=== PATIENT | male | born 1935 | race Caucasian/White ===

== ENCOUNTER → 2016-12-02 | Outpatient (CLI) | payer MEDICARE ==
[2016-03-03 15:30] VITALS: BP 123/77
[~2016-12-02] VITALS: Ht 172.7 cm; Wt 79.4 kg
[~2016-12-02] MED LIST: ALBU8.5H6 INH; ASPI81TA11 PO; ASPI81TA2 PO; CALC625T12 PO; CIPR500T94 PO; ENOX40DI SQ; ENOX40DI3 SQ; ENOX80DI3 SQ; ENOXAPARIN SODIUM SQ; FERR-26 PO; FORM20VI IH; GUAR1TAB6 PO; METR250T PO; OMEG-33 PO; OMEG500C PO; OMEP20TA63 PO; ONDA4TAB12 PO; OXYC-323 PO; OXYC1TAB7 PO; PROVENTIL HFA6.7 GM IH; REGADENOSON 0.4 MG/5 ML DISP.SYRIN. IV ONE; WARF2TAB PO; WARF3TAB7 PO; WARF4TAB7 PO; WARF5TAB7 PO
--- NOTE | 2016-12-02 14:14 | RAD ---
APPROVED REPORT Test Type: Pharmacological Stress Nurse/Tech: Gloria Mckenzie R.N. Test Indications: abnormal echo Cardiac History: copd, PE, dvt, ivc filter Medications: see scan sheet Medical History: see scan sheet Resting ECG: SR with pac Resting Heart Rate: 67 bpm Resting Blood Pressure: 164/91mmHg Pretest Chest Pain: No chest pain Nurse/Tech Notes lungs cta, heart tones regular, good radial pulse Consent: The procedure was explained to the patient in lay terms. Informed consent was witnessed. Deonte eout was entered into [employer]. History and Stress Test performed by Gloria Mckenzie R.N. Pharm. Details Pharmacologic stress testing was performed using 0.4mg per 5ml of regadenoson given intravenously ove r 7-10 seconds. Stress Symptoms No chest pain or symptoms. POST EXERCISE Reason for Termination: Infusion complete Target HR: No Max HR: 99 bpm Max Blood Pressure: 170/85mmHg Chest Pain: No. Arrhythmia: Yes. PACs continued throughout ST Change: No. INTERPRETATION Stress EKG Conclusion: Baseline EKG showed sinus rhythm. No ischemic changes at peak stress. No arr hythmias. Imaging Protocol IMAGE PROTOCOL: Rest Tc-99m/stress Tc-99m 1 day Rest: Stress: Viability: Radiopharm.Tc99m [id number] Sestamibi Dose11.9mCi 37.1mCi Img Date 12/02/2016 12/02/2016 Inj-Img [id number]. 60min. Rest Admin Site:IV - Right AntecubitalAdministrator:SAMANTHA Beavers Stress Admin Site: IV - Right AntecubitalAdministrator: SAMANTHA Beavers STRESS DATA End Diast. Vol.78.0mlAv. Heart Rate87.0bpm End Syst. Vol.28.0mlCO Index BSA0.0L/min Myocardial Ioif742.0gEject. Jqhbzeiy50.0% Stress Rates Pk. Fill Rate3.85EDV/secLVtime Pk. Fill 183.95msec Pk. Empty Rate4.73ESV/secLVtime Pk. Cmmxv057.40msec 12/01 Pk. Fill1.17EDV/sec Stress Scores Regional WT0.00Summed WT4.00 Regional WM0.00Summed WM5.00 Study quality was good. Left Ventricular size was Normal at Rest and Stress. Lung uptake was Normal. Left Ventricular ejection fraction is 64%. The rest and stress images show normal perfusion, normal contraction and thickening. LV Perf. Quant 17 Seg. SSS3.00 17 Seg. SRS5.00 17 Seg. SDS0.00 Stress Defect Extent (% LAD)0.00Rest Defect Extent (% LAD)0.60Rev. Defect Extent (% LAD)0.00 Stress Defect Extent (% LCX) 18.80Rest Defect Extent (% LCX)33.80Rev. Defect Extent (% LCX)0.00 Stress Defect Extent (% RCA)0.00Rest Defect Extent (% RCA)0.00Rev. Defect Extent (% RCA)0.00 Stress Defect Extent (% HERMELINDA)4.60Rest Defect Extent (% HERMELINDA)11.10Rev. Defect Extent (% HERMELINDA)0.00 Conclusion 1. Regadenoson cardioisotope stress test did not show any evidence of ischemia or infarct. 2. Normal left ventricular systolic function with ejection fraction calculated at 64%. 3. Low risk for cardiac events.
== END | disposition home or self-care (01) ==
LOC: NM 07:22
PROVIDERS: ATTEND Internal Medicine Cardiovascular Disease
DX: I42.9 Cardiomyopathy, unspecified (principal)
CPT/HCPCS: 78452; 93017; 96374; A9500; J2785; 96376

== ENCOUNTER → 2017-10-13 | Outpatient (CLI) | payer MEDICARE, BC ==
[2016-03-03 15:30] VITALS: BP 123/77
[~2017-10-13] MED LIST changes: +ASPI-630 PO; -ASPI81TA2 PO; +BUPIVACAINE MPF 0.5% 10 ML VIAL for KCIC. IJ ONE; +IOHEXOL 300 MG/ML 50 ML VIAL. INT ART ONE; +LIDOCAINE 1% Multi-Dose 20 ML VIAL. ID ONE; -REGADENOSON 0.4 MG/5 ML DISP.SYRIN. IV ONE; +methylPREDNISolone ACETATE 40 MG/ML VIAL. INT ART ONE
--- NOTE | 2017-10-13 11:13 | KCIC ---
[Left] hip injection History: [Left] hip pain Findings: Patient was informed of the risks to include pain, infection, bleeding, nerve or blood vessel injury, and allergic reaction. All questions were answered. The patient signed a written consent form for a [left] hip injection. Patient was placed in a supine position. External skin site overlying the [left] hip was prepped and draped in the usual sterile fashion. Betadine was utilized for cleansing solution. 1% lidocaine was utilized for local anesthesia to the depth of the [left] femoral neck. 22-gauge spinal needle was advanced to the margin of the [left] femoral neck. Solution containing 2 mL Depo-Medrol, 4 cc lidocaine, 4 cc Omnipaque 300, and 4 cc Marcaine were injected. Injection demonstrated intra-articular position of the needle tip. Needle was removed. There were no immediate complications. Bandage was applied at site of puncture. Fluoroscopy time: [48] seconds, [1] fluoroscopic image. Impression: 1. Technically successful left hip injection without immediate complication as stated. Electronically signed by: Willard Pardo MD (10/13/2017 11:09 AM) [facility]
== END | disposition home or self-care (01) ==
LOC: KCIC 10:08
PROVIDERS: ATTEND Orthopaedic Surgery Sports Medicine
DX: M25.552 Pain in left hip (principal); G89.29 Other chronic pain
CPT/HCPCS: 20610; 77002; J1030; Q9967

== ENCOUNTER → 2017-11-17 | Outpatient (CLI) | payer MEDICARE, BC ==
[2016-03-03 15:30] VITALS: BP 123/77
[~2017-11-17] MED LIST changes: -BUPIVACAINE MPF 0.5% 10 ML VIAL for KCIC. IJ ONE; +CHOL10003 PO; -IOHEXOL 300 MG/ML 50 ML VIAL. INT ART ONE; -LIDOCAINE 1% Multi-Dose 20 ML VIAL. ID ONE; +PRAV20TA2 PO; +PRED-220 PO; +RIVA20TA2 PO; +TIOT18CA IH; -methylPREDNISolone ACETATE 40 MG/ML VIAL. INT ART ONE
--- NOTE | 2017-11-17 16:39 | PAIN ---
DATE OF SERVICE: 11/17/2017 CHIEF COMPLAINT: Left hip and lower extremity pain. HISTORY OF PRESENT ILLNESS: This is an 82-year-old male who presents with history of pain in left hip for about 1 year. No specific injury or action he is aware of. It has gradually been increasing over time, worse with walking, standing, climbing stairs, especially stepping upon steps with all his weight on his left leg and hip. Pain in the posterior gluteus, posterior thigh, lateral thigh, anterior groin in the left side, constant, stabbing, throbbing, changes during the day with activity, better with sitting down or lying down. The patient reports it wakes him from sleep about once or twice a night if he is lying on his left side. No significant pain on the right side. The patient reports no difficulty with bowel or bladder control, but it does significantly affect his ability to walk though he is not using any assistive devices, canes or walkers at this time. The patient has tried Tylenol, which helps. Also a cortisone injection he had at his Orthopedics office in September of this year, which was helpful for about a month. The patient reports after that time, the pain returned. He is trying to avoid any surgical interventions if possible for his left hip. The patient reports no loss of motor function. Reports his disability rating is from 0-10, 10 being the worst, is a 6 with family and home responsibilities, recreation; 5 with social activity, occupation; 0 with sexual behavior, 2 with self-care and 3 with life support activities. 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 PAST MEDICAL HISTORY: Significant for hearing loss, bilateral hearing aids, pulmonary fibrosis and pneumonias, asthma as a child, pulmonary embolus 2000 and 2013, clot in his left groin as well, vena cava filter placement, history of arthritis, subdural hematoma in 2012. PREVIOUS SURGERIES: Include a left knee patellar resection, left elbow surgery, left shoulder surgery, rotator cuff repair, right shoulder rotator cuff repair, shoulder replacement on the left in 2014, left knee replaced in 2013, appendectomy in 2002, bunionectomy on the right in 2012, subdural hematoma in 2012, cataract extraction 2013, left knee scope 2016 and right shoulder replacement in 2017. CURRENT MEDICATIONS: Medicines are complete, full and well documented on the patient's chart. ALLERGIES: The patient has no known drug allergies. FAMILY HISTORY: Significant for pulmonary fibrosis as well. SOCIAL HISTORY: The patient does not smoke, drinks alcohol once or twice a month, is , lives with his spouse and lives locally in [place], [place] and is currently retired. REVIEW OF SYSTEMS: Positive for those items mentioned in history of present illness. All systems reviewed and otherwise is negative. It is full, complete and well documented on the patient's chart. PHYSICAL EXAMINATION: VITAL SIGNS: Today, the patient's blood pressure 162/88, pulse 85, respirations 16, temperature 97.8 degrees Fahrenheit. Height is 5 feet 8 inches, weight is 182 pounds. GENERAL: The patient is awake, alert, oriented, appropriate, very pleasant demeanor. HEENT: Head shows normocephalic, atraumatic. Extraocular muscles are intact and symmetrical. Oral cavity, mucous membranes are moist and pink. Dentition is intact. NECK: Shows anterior throat supple without palpable lymphadenopathy noted. Swallow reflex is symmetrical. CHEST: Shows normal on inspection. Breath sounds clear to auscultation bilaterally. HEART: Shows S1, S2 clear. No murmurs auscultated. ABDOMEN: Soft, obese, nontender, nondistended. No palpable organomegaly is noted. No rebound or guarding demonstrated. BACK: Shows spine grossly in the midline. Normal appearing thoracic kyphosis and lumbar lordotic curvatures. The patient's lumbar spine shows good rotational motion both laterally greater than 10 degrees right and left as well as extension greater than 10 degrees, forward flexion 45 degrees without difficulty. No tenderness with palpation over the paraspinous musculature bilaterally in the lumbar distribution upper, middle and lower and lower extremities show deep tendon reflexes 1+ in the patellar and tendo calcaneus tendons. Motor exam is strong with 5/5 dorsiflexion, extension, quadriceps and hamstring flexion and equal. Peripheral pulses are 1+ posterior tibial and dorsalis pedis pulses. No peripheral edema is noted bilaterally. The patient's left hip shows significant tenderness with palpation, even over the posterior and lateral aspect of the hip joint itself as well as the medial groin. Positive Manohar's sign on the left side with external rotation and displacement of the left hip laterally. Right side is only mildly tender, left side is significantly tender. The patient is able to stand, stand on his toes without difficulty or loss of balance, walks with a slight favoring gait, favors the left lower extremity, but not using any assistive devices to ambulate. IMPRESSION: 1. This is an 82-year-old male with approximate 1 year history of increasing pain in the left hip, worse with walking, standing, changing positions, especially stair climbing. 2. X-rays of the left hip as noted. 3. History of arthritis. 4. Pulmonary fibrosis. 5. Pulmonary emboli and history of clotting. PLAN: Options were discussed with the patient including conservative medical management, continued physical therapy, interventional techniques. He would like to pursue interventional techniques. We discussed the left hip joint injection and his orthopedic provider would like to have a Supartz injection into the hip as he has had cortisone injections already. We discussed with the patient first, we will make this procedure safe by contacting his primary care physician who prescribes his Xarelto and have him clear to hold this for 2 days prior to injection. If this is deemed safe and appropriate, we will have the patient hold the Xarelto then and return for a left intraarticular hip joint injection at that time. The patient will continue on Xarelto until word is back from his primary care physician giving clearance to hold it. We will contact him with that decision from his primary. IRENE DODSON MD DR: LEYDA/rand JOB#: [id number] / [id number]
== END | disposition home or self-care (01) ==
LOC: PNCL 08:36
PROVIDERS: ATTEND Anesthesiology
DX: J45.909 Unspecified asthma, uncomplicated (principal); H91.93 Unspecified hearing loss, bilateral; M40.294 Other kyphosis, thoracic region; J84.10 Pulmonary fibrosis, unspecified; I26.99 Other pulmonary embolism without acute cor pulmonale; M79.605 Pain in left leg; M16.12 Unilateral primary osteoarthritis, left hip
CPT/HCPCS: G0463

== ENCOUNTER → 2017-11-25 | Outpatient (CLI) | payer MEDICARE, BC ==
[~2017-11-25] MED LIST changes: -ALBU8.5H6 INH; -ASPI-630 PO; -ASPI81TA11 PO; -CALC625T12 PO; -CHOL10003 PO; -CIPR500T94 PO; -ENOX40DI SQ; -ENOX40DI3 SQ; -ENOX80DI3 SQ; -ENOXAPARIN SODIUM SQ; -FERR-26 PO; -FORM20VI IH; -GUAR1TAB6 PO; +IOHEXOL 180 MG/ML 10 ML VIAL.; -METR250T PO; -OMEG-33 PO; -OMEG500C PO; -OMEP20TA63 PO; -ONDA4TAB12 PO; -OXYC-323 PO; -OXYC1TAB7 PO; -PRAV20TA2 PO; -PRED-220 PO; -PROVENTIL HFA6.7 GM IH; -RIVA20TA2 PO; -TIOT18CA IH; -WARF2TAB PO; -WARF3TAB7 PO; -WARF4TAB7 PO; -WARF5TAB7 PO
== END | disposition home or self-care (01) ==
LOC: PNCL 09:09
DX: M16.12 Unilateral primary osteoarthritis, left hip (principal); M25.552 Pain in left hip; Z98.42 Cataract extraction status, left eye; Z98.41 Cataract extraction status, right eye; Z98.890 Other specified postprocedural states; Z96.652 Presence of left artificial knee joint
CPT/HCPCS: 20610; 77002

== ENCOUNTER → 2017-12-03 | Outpatient (CLI) | payer MEDICARE, BC | END | disposition home or self-care (01) | LOC: PNCL 07:47 | DX: M16.12 Unilateral primary osteoarthritis, left hip (principal); I25.10 Atherosclerotic heart disease of native coronary artery without angina pectoris; I10 Essential (primary) hypertension; J43.9 Emphysema, unspecified; K21.9 Gastro-esophageal reflux disease without esophagitis; Z86.718 Personal history of other venous thrombosis and embolism; Z98.41 Cataract extraction status, right eye; Z98.42 Cataract extraction status, left eye; Z98.890 Other specified postprocedural states; Z87.442 Personal history of urinary calculi; Z96.652 Presence of left artificial knee joint | CPT/HCPCS: 20610; 77002 ==

== ENCOUNTER → 2017-12-10 | Outpatient (CLI) | payer MEDICARE, BC | END | disposition home or self-care (01) | LOC: PNCL 08:53 | DX: M16.12 Unilateral primary osteoarthritis, left hip (principal); I10 Essential (primary) hypertension; J43.9 Emphysema, unspecified; K21.9 Gastro-esophageal reflux disease without esophagitis; Z86.718 Personal history of other venous thrombosis and embolism; Z98.890 Other specified postprocedural states; Z87.442 Personal history of urinary calculi; Z87.39 Personal history of other diseases of the musculoskeletal system and connective tissue; Z96.652 Presence of left artificial knee joint; Z98.41 Cataract extraction status, right eye; Z98.42 Cataract extraction status, left eye | CPT/HCPCS: 20610; 77002 ==

== ENCOUNTER → 2018-01-17 | Outpatient (CLI) | payer MEDICARE, BC ==
[2018-01-17 09:42] LABS: ADD MAN DIFF? NO
[2018-01-17 09:55] LABS: BASO # 0.1 x10^3/uL (0.0-0.2); BASO % 1 % (0-3); EOS # 0.3 x10^3/uL (0.0-0.7); EOS % 2 % (0-3); HEMATOCRIT 45.7 % (39.0-53.0); HEMOGLOBIN 15.2 g/dL (13.0-17.5); LYMPH # 4.4 x10^3/uL (1.0-4.8); LYMPH % 32 % (24-48); MEAN CORPUSCULAR HEMOGLOBIN 29 pg (25-35); MEAN CORPUSCULAR HGB CONC 33 g/dL (31-37); MEAN CORPUSCULAR VOLUME 88 fL (79-100); MONO # 1.2 x10^3/uL (0.0-1.1); MONO % 9 % (0-9); NEUT # 7.7 x10^3uL (1.8-7.7); NEUT % 57 % (31-73); PLATELET COUNT 243 x10^3/uL (140-400); RED BLOOD COUNT 5.17 x10^6/uL (4.30-5.70); RED CELL DISTRIBUTION WIDTH 16.5 % (11.5-14.5); WHITE BLOOD COUNT 13.7 x10^3/uL (4.0-11.0)
[2018-01-17 09:57] LABS: BILIRUBIN,URINE NEGATIVE (NEG); CLARITY,URINE CLEAR; COLOR,URINE YELLOW; GLUCOSE,URINE NEGATIVE (NEG); NITRITE,URINE NEGATIVE (NEG); PROTEIN,URINE NEGATIVE (NEG-TRACE); UROBILINOGEN,URINE 0.2 mg/dL (0.2 mg/dL)
[2018-01-17 10:00] LABS: ALBUMIN 3.8 g/dL (3.4-5.0); ANION GAP 12 (6-14); BLOOD UREA NITROGEN 23 mg/dL (8-26); CALCIUM 9.9 mg/dL (8.5-10.1); CARBON DIOXIDE 26 mmol/L (21-32); CHLORIDE 100 mmol/L (98-107); GFR 71.9; GLUCOSE 86 mg/dL (70-99); POTASSIUM 3.7 mmol/L (3.5-5.1); SODIUM 138 mmol/L (136-145)
[2018-01-17 10:07] LABS: INR 1.2 (0.8-1.1); PARTIAL THROMBOPLASTIN TIME 28 SEC (24-38); PROTHROMBIN TIME PATIENT 14.1 SEC (11.7-14.0)
[2018-01-17 10:39] LABS: BACTERIA,URINE FEW /HPF (0-FEW); RBC,URINE 0 /HPF (0-2); SQUAMOUS EPITHELIAL CELL,UR OCC /LPF
[2018-01-17 10:40] LABS: HYALINE CASTS, URINE OCCASIONAL /HPF
[2018-01-17 11:14] LABS: SEDIMENTATION RATE 22 (0-15)
[2018-01-17 20:12] LABS: MRSA BY PCR Negative (Negative)
== END | disposition home or self-care (01) ==
LOC: SURGPAT 12:36
DX: Z01.818 Encounter for other preprocedural examination (principal); I10 Essential (primary) hypertension
CPT/HCPCS: 36415; 80048; 81001; 82040; 85025; 85610; 85651; 85730; 87641; 93005

== ENCOUNTER → 2018-05-18 | Outpatient (CLI) | payer MEDICARE | END | disposition home or self-care (01) | LOC: ECHO 10:01 | DX: I27.20 Pulmonary hypertension, unspecified (principal); I31.3 Pericardial effusion (noninflammatory) | CPT/HCPCS: 93306 ==

== ENCOUNTER → 2018-06-21 | Outpatient (CLI) | payer MEDICARE ==
[2018-06-21 13:59] LABS: ALBUMIN 3.8 g/dL (3.4-5.0); ALK PHOS 72 U/L (46-116); ALT (SGPT) 18 U/L (16-63); AST (SGOT) 15 U/L (15-37); DIRECT BILIRUBIN 0.1 mg/dL (0.0-0.2); TOTAL BILIRUBIN 0.4 mg/dL (0.2-1.0); TOTAL PROTEIN 7.9 g/dL (6.4-8.2)
== END | disposition home or self-care (01) ==
LOC: LAB 12:56
DX: J84.112 Idiopathic pulmonary fibrosis (principal); I10 Essential (primary) hypertension; J43.9 Emphysema, unspecified; K21.9 Gastro-esophageal reflux disease without esophagitis; Z86.718 Personal history of other venous thrombosis and embolism; Z79.899 Other long term (current) drug therapy
CPT/HCPCS: 36415; 80076

== ENCOUNTER → 2018-09-21 | Outpatient (CLI) | payer MEDICARE ==
[2018-01-27 05:50] VITALS: BP 159/96
[~2018-09-21] MED LIST changes: +ALBU8.5H6 INH; +ASPI-630 PO; +ASPI81TA11 PO; +CALC625T12 PO; +CEFD300C PO; +CHOL10003 PO; +CIPR500T94 PO; +ENOX40DI SQ; +ENOX40DI3 SQ; +ENOX80DI3 SQ; +ENOXAPARIN SODIUM SQ; +FERR325T14 PO; +FORM20VI IH; +GUAR1TAB6 PO; +HYDR-2758 PO; -IOHEXOL 180 MG/ML 10 ML VIAL.; +MELO15TA6 PO; +METR250T PO; +OMEG-33 PO; +OMEG500C PO; +OMEP20TA63 PO; +ONDA4TAB12 PO; +OXYC-323 PO; +OXYC1TAB7 PO; +PIRF801T PO; +PRAV20TA2 PO; +PRED-220 PO; +PROVENTIL HFA6.7 GM IH; +RIVA20TA2 PO; +TIOT18CA IH; +WARF-31 PO; +WARF-78 PO; +WARF2TAB PO; +WARF3TAB50 PO; +WARF4TAB64 PO
--- NOTE | 2018-09-21 16:40 | KCIC ---
4 views of the lumbar spine without comparison for right-sided low back pain without sciatica for 2 months, no history of injury. FINDINGS: Vena Tech permanent IVC filter is present within the infrarenal IVC. Left hip prosthesis is noted. There is mild straightening of the normal lumbar lordosis with moderate narrowing at L3-4, L4-5, and more severe narrowing at L5-S1 with vacuum phenomenon. There is ossification of the L3-4 disc space with bulky anterior osteophyte. 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 Bulky facet arthrosis is present at L5-S1, and may result in foraminal narrowing. This finding could be better evaluated with MRI if clinically warranted. IMPRESSION: 1. No fracture or acute osseous or alignment abnormality of the lumbar spine. 2. Multilevel degenerative changes as described, possibly with foraminal narrowing at L5-S1. 3. Changes of Baastrup's disease. Electronically signed by: Jean Paul Caal MD (09/21/2018 4:38 PM) [facility]
== END | disposition home or self-care (01) ==
LOC: KCIC 11:18
PROVIDERS: ATTEND Internal Medicine Rheumatology
DX: M51.36 Other intervertebral disc degeneration, lumbar region (principal); M48.26 Kissing spine, lumbar region
CPT/HCPCS: 72110

== ENCOUNTER → 2018-10-04 | Outpatient (CLI) | payer MEDICARE ==
[2018-01-27 05:50] VITALS: BP 159/96
[~2018-10-04] MED LIST changes: +GADOBUTROL 10 MMOL/10 ML VIAL IV ONE
--- NOTE | 2018-10-04 14:33 | KCIC ---
MRI of the lumbar spine without and with contrast 10/04/2018 CLINICAL HISTORY: Progressive low back pain which radiates down the right hip. TECHNIQUE: Unenhanced T1-weighted and T2-weighted sagittal and axial and inversion recovery sagittal images of the lumbar spine were obtained. After the intravenous administration of 8 cc of Gadavist, enhanced T1-weighted sagittal and axial images of the lumbar spine were obtained. FINDINGS: Comparison is made to radiographs of the lumbar spine dated 09/21/2018. Mild S-shaped curvature of the thoracolumbar spine is seen. Mild anterolisthesis of L5 in relation to S1 is noted. Degenerative signal changes are seen involving all of the disks of the lumbar spine. Degenerative signal changes are seen within the marrow surrounding these discs. Loss of height of the L3-4, L4-5 and L5-S1 discs is noted. The conus medullaris is normal morphology, position, and signal characteristics. No area of abnormal contrast enhancement is noted. At the L1-2, L2-3 and L3-4 disc spaces there are mild to moderate generalized disc bulges. Degenerative changes are seen involving the facet joints bilaterally. These findings do not result in significant central spinal canal or neural foraminal stenosis. At the L3-4 disc space there is a mild to moderate generalized disc bulge. This is eccentric to the right. Degenerative changes are seen involving the facet joints bilaterally. There is mild ligamentum flavum hypertrophy. These findings do not result in significant central spinal canal or neural foraminal stenosis. At the L4-5 disc space there is a mild generalized disc bulge. Degenerative changes are seen involving the facet joints bilaterally. There is mild to moderate ligamentum flavum hypertrophy bilaterally. These findings when combined do not result in significant central spinal canal stenosis. Mild left neural foraminal stenosis is seen. The right neural foramen is patent. At the L5-S1 disc space there is a mild to moderate generalized disc bulge. This is eccentric to the right. Degenerative changes are seen involving the facet joints, right greater than left. There is mild to moderate ligamentum flavum hypertrophy. These findings when combined result in moderate right lateral central spinal canal stenosis. Moderate to severe right neural foraminal stenosis is seen. Mild left neural foraminal stenosis is noted. IMPRESSION: The changes of degenerative disc disease are seen involving the lumbar spine. These findings result in moderate right lateral central spinal canal stenosis at L5-S1. Moderate to severe right neural foraminal stenosis is seen at L5-S1. Mild left neural foraminal stenosis is seen at L4-5 and L5-S1. Electronically signed by: Sabino Sullivan MD (10/04/2018 2:30 PM) [facility]
== END | disposition home or self-care (01) ==
LOC: KCIC MRI 08:36
DX: M51.36 Other intervertebral disc degeneration, lumbar region (principal); M48.07 Spinal stenosis, lumbosacral region; M48.061 Spinal stenosis, lumbar region without neurogenic claudication; J44.9 Chronic obstructive pulmonary disease, unspecified; Z79.01 Long term (current) use of anticoagulants
CPT/HCPCS: 72158; 82565; A9585

== ENCOUNTER → 2018-11-09 | Outpatient (CLI) | payer MEDICARE ==
[2018-01-27 05:50] VITALS: BP 159/96
[~2018-11-09] MED LIST changes: -GADOBUTROL 10 MMOL/10 ML VIAL IV ONE; -HYDR-2758 PO; +HYDR-2761 PO; -OXYC-323 PO; +OXYC1TAB15 PO
--- NOTE | 2018-11-09 13:02 | PAIN ---
DATE OF SERVICE: 11/09/2018 DIAGNOSES: 1. Lumbar radiculopathy with lumbar degenerative disk disease and lumbar spinal stenosis. 2. Left hip joint pain with osteoarthritis. HISTORY OF PRESENT ILLNESS: The patient is an 83-year-old male who returns for followup, last seen 11/2017. The patient had left hip joint injection and eventually had a left hip replacement in 12/2017. He says this did very well, after which patient had a significant pain down low back for about the past 4-5 months. The patient reports it as increasing. He has seen his neurosurgeon who was recommending conservative treatment at this time. He did have a new MRI scan of lumbar spine showing degenerative disk disease involving the lumbar spine resulting in moderate right lateral central spinal canal stenosis at L5-S1, moderate to severe right neural foraminal stenosis at L5-S1 and mild left neural foraminal stenosis at L4-L5 and L5-S1. The patient reports the pain is across the low back in the lower extremities, worse on the right side than the left, but only moderately and radiating into the posterior gluteus, posterior thigh on the right side greater than left, worse with walking, standing and changing positions, waking him from sleep occasionally, but not every night. The patient reports it is a 7 on a scale of 10 at its worst, 6 on average, 3 at its least and is a 6 today. The patient reports it is aching, sharp, becoming more noticeable, more constant, worse with walking, standing, better with sitting or lying down. The patient reports no loss of motor function. No bowel or bladder incontinence or other complaints. PHYSICAL EXAMINATION: VITAL SIGNS: Blood pressure 143/100, pulse 80, respirations 16, temperature 98.1 degrees Fahrenheit. Height 5 feet 8 inches, weight 179 pounds. GENERAL: The patient is awake, alert, oriented, appropriate, very pleasant demeanor. HEENT: Head shows normocephalic, atraumatic. Extraocular movements are intact and symmetrical. Oral cavity, mucous membranes are moist and pink. Dentition is intact. NECK: Shows anterior throat supple without palpable lymphadenopathy noted. Swallow reflex is symmetrical. CHEST: Shows normal on inspection. Breath sounds are clear to auscultation bilaterally. HEART: Shows S1, S2 clear. No murmurs auscultated. ABDOMEN: Soft, nontender, nondistended. No palpable organomegaly. No rebound or guarding demonstrated. BACK: Shows spine grossly in the midline. Normal-appearing thoracic kyphosis and some normal to slightly flattened lumbar lordotic curvature. The patient's back shows good rotational motion of the lumbar spine laterally, greater than 10 degrees right and left, with extension greater than 10 degrees, forward flexion 45 degrees without significant difficulty. EXTREMITIES: The patient's lower extremities show deep tendon reflexes 1+ in patellar and tendocalcaneous tendon. Motor exam is 5/5 with dorsiflexion, extension, quadriceps, hamstring flexion symmetrical. Peripheral pulses are 1+ posterior tibia. No peripheral edema is noted bilaterally. Straight leg raise negative for reproduction of radicular symptoms bilaterally. The patient is able to stand, stand on his toes without significant loss of balance. He walks with a slight shuffling gait, but does not appear to favor the right or left lower extremity significantly. Options were discussed with the patient. The patient's old chart was reviewed as her current medication regimen updated. Current review of systems updated today as well. We will check with his prescribing physician for holding his Xarelto for 2 days prior to potential lumbar epidural steroid injection. The patient reports he had a heart catheterization on 11/14, and we will wait until this is completed, and depending on those findings and any other changes in his medication schedule, we will determine a plan of course for a lumbar epidural steroid injection. He would like to proceed with this. Again, we will await for preauthorization for holding his Xarelto. Once his heart catheterization is completed, we will have him contact the office and schedule followup at that time. IRENE DODSON MD DR: LEYDA/rand JOB#: [id number] / [id number]
== END | disposition home or self-care (01) ==
LOC: PNCL 10:13
PROVIDERS: ATTEND Anesthesiology
DX: M51.16 Intervertebral disc disorders with radiculopathy, lumbar region (principal); M48.061 Spinal stenosis, lumbar region without neurogenic claudication; M16.12 Unilateral primary osteoarthritis, left hip
CPT/HCPCS: G0463

== ENCOUNTER 2018-11-14 06:19 | Outpatient (CLI) | payer MEDICARE ==
[2018-11-14] VITALS (12 sets, daily range): BP systolic 65–177; BP diastolic 41–100
[~2018-11-14] VITALS: Ht 172.7 cm; Wt 81.6 kg
[~2018-11-14 06:19] MED LIST changes: +ALBU2.5V8 IH; -PROVENTIL HFA6.7 GM IH
[2018-11-14] MEDS ORDERED: TIOT18CA IH (06:55)
[2018-11-14 07:04] LABS: HEMATOCRIT 40.9 % (39.0-53.0); HEMOGLOBIN 13.6 g/dL (13.0-17.5); RED BLOOD COUNT 4.9 x10^6/uL (4.30-5.70); RED CELL DISTRIBUTION WIDTH 16.7 % (11.5-14.5); WHITE BLOOD COUNT 11.8 x10^3/uL (4.0-11.0)
[2018-11-14 07:11] LABS: PROTHROMBIN TIME PATIENT 14.6 SEC (11.7-14.0)
[2018-11-14] MEDS ORDERED: IODIXANOL 320 MG/ML 100 ML VIAL. ONE (07:15)
[2018-11-14] MEDS ORDERED: LIDOCAINE 1% PF 30 ML VIAL. ONE (07:15)
[2018-11-14 07:20] LABS: CALCIUM 9.5 mg/dL (8.5-10.1); CREATININE 1.2 mg/dL (0.7-1.3); GFR 58.1; POTASSIUM 4.4 mmol/L (3.5-5.1)
[2018-11-14] MEDS ORDERED: MIDAZOLAM HCL/PF 5 MG/5 ML VIAL. IV ONE (07:45)
[2018-11-14] MEDS ORDERED: CONTRAST GIVEN. MC PRN (07:45)
[2018-11-14] MEDS ORDERED: fentaNYL PF VIAL 100 MCG/2 ML VIAL IV ONE (07:45)
[2018-11-14] MEDS ORDERED: IODIXANOL 320 MG/ML 100 ML VIAL. IART ONE (07:45)
[2018-11-14] MEDS ORDERED: LIDOCAINE 1% PF 30 ML VIAL. INJ ONE (07:45)
[2018-11-14] MEDS: IV 1/2 NORMAL SALINE 1,000 ML IV SCH ×2 (09:29→12:48)
--- NOTE | 2018-11-14 09:29 | PDOC ---
MODERATE SEDATION ASSESSMENT RISKS/ALTERNATIVES Risks/Alternatives Risks and alternatives of this type of sedation and procedure discussed with: RISK/ALTERNATIVES: Patient H & P ON CHART H & P H & P on chart and reviewed for co-morbid conditions and appropriate labs. H&P ON CHART: Yes STATUS PREG STATUS ASSESSED: N/A MEDS/ALLERGIES REVIEWED Meds/Allergies Reviewed Medications and Allergies including time and route of recently administered narcotics and sedatives. MEDS/ALLERGIES REVIEWED: Yes ASA RATING ASA RATING: III AIRWAY ASSESSMENT Airway Assessment Airway patency, oral function limitations, presence of caps, crowns, dentures, partials, and ability to extend neck assessed. AIRWAY ASSESSMENT: Yes MALLAMPATI SCORE MALLAMPATI SCORE: II PRE-SEDATION ASSESSMENT PRE-SEDATION ASSESSMENT: Yes MAXX SILVA MD Nov 14, 2018 09:29
[2018-11-14] MEDS ORDERED: NITROGLYCERIN SUBLINGUAL 0.4 MG BOTTLE OF 25. SL PRN (09:30)
--- NOTE | 2018-11-14 09:47 | CARD ---
MR#: [id number] Date of Study: 11/14/2018 Ordering Physician: MAXX MCNALLY, Referring Physician: MAXX MCNALLY Tech: RT Tarsha (R) SHAHID APPROVED REPORT Technologist: RT Tarsha (R) SHAHID Nurse: Sheryl Vergara R.N. Procedure(s) performed: Right and left heart catheterization, selective coronary angiography and left ventriculography Moderate sedation: 56 mins INDICATION The indication(s) include : Refractory dyspnea on exertion and chest pain concerning for unstable ang chandana, interstitial lung disease r/o pulmonary hypertension. PROCEDURE NARRATIVE After explaining the risks, benefits and alternative options, informed consent was obtained from cheryl ent. Patient brought to the cardiac Damage Adjuster and his right groin was prepped and draped in the usual fashion. 20 mL of 2% lidocaine was infiltrated into the skin and subcutaneous tissues for local anest hesia. Arterial and venous accesses were obtained in the right common femoral artery and vein and 6 a nd 8 [place] sheaths were inserted. A 7.5 [place] catheter was then advanced under fluoroscop y guidance and intracardiac pressures, oxygen saturations and cardiac output by thermodilution method were measured. Subsequently, 6 [place] JL4 and 6 [place] JR4 catheters were used to perform selective angiography of the left and right coronary arteries. 6 [place] pigtail catheter was used to perform le ft ventriculography. Patient tolerated the procedure well. Hemostasis was achieved using Angio-Seal a nd manual compression. There were no immediate complications. FINDINGS A. RIGHT HEART CATHETERIZATION 1. Intracardiac pressures: Mean right atrial pressure 5 mmHg, right ventricle pressure 22/2 mmHg, p ulmonary arterial pressure 24/9 mmHg, mean PA pressure 14 mmHg, mean primary capillary wedge pressure 10 mmHg. No evidence of pulmonary hypertension. 2. Oxygen saturations: Right atrium 72.4%, pulmonary artery 70.2%, femoral arterial sheath 96.5%. N o evidence of intracardiac shunt. 3. Cardiac output by thermodilution method 4.7 L/m. B. LEFT HEART CATHETERIZATION 1. Hemodynamics: Left ventricular end-diastolic pressure 13 mmHg. No pullback gradient across the ao rtic valve. 2. Left ventriculography: Mild to moderate left ventricle systolic dysfunction with ejection fractio n estimated at 40%. No significant mitral regurgitation seen. 3. Coronary angiography: a. The left main coronary artery arose from the left sinus of Valsalva, gave rise to the left anteri or descending and left circumflex arteries and did not show any significant stenosis. b. The left anterior descending artery did not show any significant stenosis. c. The left circumflex artery was a large caliber vessel and did not show any significant stenosis. d. The right coronary artery did not show any significant stenosis. Conclusion 1. No significant coronary artery disease 2. Mild to moderate left-sided systolic dysfunction with ejection fraction estimated at 40%. 3. No evidence of pulmonary hypertension or intracardiac shunt. Recommendations Optimization of medical therapy for nonischemic cardiomyopathy. Signed by : Maxx Mcnally, Electronically Approved : 11/14/2018 09:45:55
[2018-11-14] MEDS ORDERED: IV NORMAL SALINE 500ML BAG 500 ML IV ONE (13:00)
== END 2018-11-14 13:15 | disposition home or self-care (01) ==
LOC: CCL 06:19
PROVIDERS: ATTEND Internal Medicine Cardiovascular Disease
DX: I20.0 Unstable angina (principal); I42.9 Cardiomyopathy, unspecified; I12.9 Hypertensive chronic kidney disease with stage 1 through stage 4 chronic kidney disease, or unspecified chronic kidney disease; N18.9 Chronic kidney disease, unspecified; J44.9 Chronic obstructive pulmonary disease, unspecified; E78.5 Hyperlipidemia, unspecified; K21.9 Gastro-esophageal reflux disease without esophagitis; J84.89 Other specified interstitial pulmonary diseases; Z86.718 Personal history of other venous thrombosis and embolism; Z87.01 Personal history of pneumonia (recurrent); Z87.442 Personal history of urinary calculi; J84.10 Pulmonary fibrosis, unspecified; Z90.49 Acquired absence of other specified parts of digestive tract; Z98.890 Other specified postprocedural states; Z96.652 Presence of left artificial knee joint; Z96.642 Presence of left artificial hip joint; Z82.0 Family history of epilepsy and other diseases of the nervous system; Z79.899 Other long term (current) drug therapy; I26.99 Other pulmonary embolism without acute cor pulmonale; Z98.42 Cataract extraction status, left eye; Z98.41 Cataract extraction status, right eye; Z96.1 Presence of intraocular lens; Z96.611 Presence of right artificial shoulder joint; Z96.612 Presence of left artificial shoulder joint; Z87.891 Personal history of nicotine dependence
CPT/HCPCS: 36415; 80048; 85027; 85610; 93460; 99152; 99153; C1769; C1773; C1892; J1644; J2250; J3010; J7040; Q9967; 93453; C1771; G0269

== ENCOUNTER → 2018-11-30 | Outpatient (CLI) | payer MEDICARE ==
[2018-11-14 13:00] VITALS: BP 148/72
[~2018-11-30] MED LIST changes: +IOHEXOL 180 MG/ML 10 ML VIAL. ONE; +methylPREDNISolone ACETATE 40 MG/ML VIAL. ONE; +methylPREDNISolone ACETATE 80 MG/ML VIAL. ONE
--- NOTE | 2018-11-30 20:28 | PAIN ---
DATE OF SERVICE: 11/30/2018 DIAGNOSES: 1. Lumbar radiculopathy with lumbar spinal stenosis. 2. Lumbar degenerative disk disease. HISTORY OF PRESENT ILLNESS: The patient is an 83-year-old male who returns for followup status post initial evaluation and preauthorization to hold his Xarelto. The patient has been off this now for 3 days, reports still significant pain in the low back and right lower extremity greater than left, posterior gluteus, posterior thighs, again worse on the right than the left. The patient reports it is constant, aching, sharp, dull, radiating; worse with walking, standing, changing positions; better with lying down or sitting; does not awaken him from sleep at night. The patient reports the pain is 8 on a scale of 10 at its worst, 6 on average, 4 at its least and is 6 today. The patient reports it is becoming more constant with activity, however. He recently had a heart catheterization, he reports that everything was very clean, all this arteries were open without any areas of concern. The patient reports no new changes, no new bowel or bladder incontinence or other complaints. PHYSICAL EXAMINATION: VITAL SIGNS: The patient's blood pressure is 167/100, pulse 98, respirations are 18, temperature 97.9 degrees Fahrenheit, height is 5 feet 8 inches, weighs 177 pounds. GENERAL: The patient is awake, alert, oriented, appropriate, very pleasant demeanor. HEENT: Head exam is normocephalic, atraumatic. Extraocular movements intact and symmetrical. Oral cavity: Mucous membranes moist and pink. Dentition is intact. NECK: Shows anterior throat supple without palpable lymphadenopathy noted. Swallow reflex symmetrical. CHEST: Shows normal with inspection. Breath sounds clear to auscultation bilaterally. HEART: Shows S1, S2 clear. No murmurs auscultated. ABDOMEN: Soft, nontender, nondistended. No palpable organomegaly is noted. No rebound or guarding demonstrated. BACK: Shows spine grossly in the midline. Normal-appearing thoracic kyphosis and lumbar lordotic curvature is slightly flattened. Lumbar paraspinous muscle shows symmetrical on inspection, with palpation shows some moderate tenderness diffusely in the middle and lower distribution of paraspinous muscles, but only diffusely without radiation. The patient has good rotational motion of the lumbar spine, both laterally as well as extension and flexion without difficulty. EXTREMITIES: Lower extremities show deep tendon reflexes at 1+ in the patellar and tendo-calcaneus tendons. Motor exam is strong with 5/5 dorsiflexion, extension, quadriceps and hamstring flexion and equal bilaterally. Peripheral pulses were 1+ posterior tibial. No peripheral edema was noted. Options were discussed with the patient. The patient's old chart was reviewed as was current medication regimen updated. Current review of systems updated today as well. We will proceed with a lumbar epidural steroid injection today under fluoroscopic guidance. Risks were again discussed including, but not limited to bleeding, infection, possibility of epidural hematoma and subsequent neurological compromise, dural puncture, headaches, spinal cord and/or nerve damage, side effects of steroid medication and poor results regarding pain control. The patient understands and wished to proceed. The patient will return to the clinic in approximately 2 weeks for followup. He was counseled as to return appointment, activity level and side effects to be aware of. DIAGNOSES: 1. Lumbar radiculopathy with lumbar spinal stenosis. 2. Lumbar degenerative disk disease. PROCEDURE: Lumbar epidural steroid injection, translaminar approach L5-S1 level using C-arm fluoroscopic guidance under sterile prep and drape using local anesthetic. MEDICATION INJECTED: A total of 120 mg of Depo-Medrol plus 10 mL of preservative-free normal saline and 2 mL of Isovue for contrast. CONDITION AT DISCHARGE: Stable. The patient tolerated the procedure well, had no complications. IRENE DODSON MD DR: LEYDA/rand JOB#: [id number] / [id number]
== END | disposition home or self-care (01) ==
LOC: PNCL 14:01
PROVIDERS: ATTEND Anesthesiology
DX: M51.16 Intervertebral disc disorders with radiculopathy, lumbar region (principal); M48.061 Spinal stenosis, lumbar region without neurogenic claudication; Z79.899 Other long term (current) drug therapy
CPT/HCPCS: 62323; J1030; J1040; Q9965

== ENCOUNTER → 2018-12-21 | Outpatient (CLI) | payer MEDICARE ==
[2018-11-14 13:00] VITALS: BP 148/72
--- NOTE | 2018-12-21 12:06 | PAIN ---
DATE OF SERVICE: 12/21/2018 PROGRESS NOTE FOR PAIN CLINIC DIAGNOSES: Lumbar radiculopathy with lumbar spinal stenosis, lumbar degenerative disk disease. HISTORY OF PRESENT ILLNESS: The patient is an 83-year-old male who returns for followup status post lumbar epidural steroid injection x 1. The patient reports he did quite well, about 60% improvement for the first week and the pain beginning to return, but only gradually in the low back and right lower extremity. The patient reports the leg was doing much better, but has been returning now the past few days. He has pain across the low back as well, rates an 8 on a scale of 10 at its worst, 5 on average and 3 at its least and is a 5 today. The patient reports it is aching, sharp, becoming more constant over the last few days and more noticeable. The patient reports some tingling type sensation across the back as well as shooting pain in the right leg, which is worse with walking, standing, changing positions, better with sitting or lying down, does not awaken him from sleep at night, does not bother much him much when he is sitting. The patient reports when he is getting up out of a seated position or getting out of bed in the morning, he feels the pain is back in leg the most. The patient reports no new motor or sensory deficits, no new bowel or bladder incontinence or other complaints. PHYSICAL EXAMINATION: VITAL SIGNS: The patient's blood pressure is 151/96, pulse 87, respirations 18, temperature 97.6 degrees Fahrenheit, height is 5 feet 8 inches, weighs 177 pounds. GENERAL: The patient is awake, alert, oriented, appropriate, very pleasant demeanor. HEENT: Shows head is normocephalic, atraumatic. Extraocular movements intact and symmetrical. Oral cavity: Mucous membranes moist and pink. Dentition is intact. NECK: Shows anterior throat supple without palpable lymphadenopathy noted. Swallow reflex is symmetrical. CHEST: Shows normal on inspection. Breath sounds clear to auscultation bilaterally. HEART: Shows S1, S2 clear. No murmurs auscultated. ABDOMEN: Soft, nontender, nondistended. No palpable organomegaly is noted. No rebound or guarding demonstrated. BACK: Shows spine grossly in the midline. Normal appearing thoracic kyphosis and lumbar lordotic curvature. Lumbar paraspinous muscle shows symmetrical on inspection. With palpation shows some moderate tenderness diffusely only in the low lumbar distribution, slightly more on the right than the left, but without radiation. The patient shows no trigger points. Good rotational motion both laterally as well as extension and flexion of the lumbar spine without significant difficulty. EXTREMITIES: Lower extremities show deep tendon reflexes 1+ in the patellar and tendo-calcaneus tendons. Motor exam is strong with 5/5 dorsiflexion, extension, quadriceps and hamstring flexion equal. Peripheral pulses are 1+ posterior tibial. No peripheral edema is noted bilaterally. Options were discussed with the patient. The patient's old chart was reviewed as his current medication regimen updated. Current review of systems updated today as well. We will proceed with a second in the series of lumbar epidural steroid injection today with fluoroscopic guidance. Risks were again discussed including, but not limited to bleeding, infection, possibility of epidural hematoma, subsequent neurologic compromise, dural puncture headache, spinal cord and/or nerve damage, side effects of steroid medication and poor results regarding pain control. The patient understands and wished to proceed. The patient will return to clinic in approximately 2 weeks for followup. He was counseled on return appointment, activity level and side effects to be aware of. DIAGNOSES: Lumbar radiculopathy with lumbar degenerative disk disease, lumbar spinal stenosis. PROCEDURE: Lumbar epidural steroid injection, translaminar approach at L5-S1 level using C-arm fluoroscopic guidance under sterile prep and drape using local anesthetic. MEDICATION INJECTED: A total of 120 mg Depo-Medrol plus 10 mL of preservative-free normal saline and 2 mL of Isovue for contrast. CONDITION AT DISCHARGE: Stable. The patient tolerated the procedure well, had no complications. IRENE DODSON MD DR: LEYDA/rand JOB#: [id number] / [id number]
== END | disposition home or self-care (01) ==
LOC: PNCL 10:38
PROVIDERS: ATTEND Anesthesiology
DX: M51.16 Intervertebral disc disorders with radiculopathy, lumbar region (principal); M48.061 Spinal stenosis, lumbar region without neurogenic claudication
CPT/HCPCS: 62323; J1030; J1040; Q9965

== ENCOUNTER → 2019-01-16 | Outpatient (CLI) | payer MEDICARE ==
[2018-11-14 13:00] VITALS: BP 148/72
[~2019-01-16] MED LIST changes: +ACET500T68 PO; +DOCU-109 PO; +HYDR-3164 PO; -IOHEXOL 180 MG/ML 10 ML VIAL. ONE; +NINT100C PO; +TRIA15CR2 TP; -methylPREDNISolone ACETATE 40 MG/ML VIAL. ONE; -methylPREDNISolone ACETATE 80 MG/ML VIAL. ONE
--- NOTE | 2019-01-16 16:00 | EKG ---
[facility] [address] [place] [address] Test Date: 2019-01-16 Test Time: 15:56:13 Pat Name: EMMY ALBARADO Department: Room: Gender: M Harness Brusher: AT : 1935 Requested By: NIKIA JOHNSON Order Number: [id number] Reading MD: Dominic Ortiz MD Measurements Intervals [place] Rate: 91 P: 25 OR: 140 QRS: -24 QRSD: 82 T: 71 QT: 338 QTc: 417 Interpretive Statements SINUS RHYTHM PAC's LVH Electronically Signed On 01-17-2019 11:42:52 SPECIAL EDUCATION COORDINATOR by Dominic Ortiz MD
[2019-01-16 16:16] LABS: BASO % 0 % (0-3); EOS % 0 % (0-3); HEMATOCRIT 41.1 % (39.0-53.0); HEMOGLOBIN 13.4 g/dL (13.0-17.5); LYMPH # 1.3 x10^3/uL (1.0-4.8); LYMPH % 13 % (24-48); MEAN CORPUSCULAR HEMOGLOBIN 27 pg (25-35); MEAN CORPUSCULAR HGB CONC 33 g/dL (31-37); MEAN CORPUSCULAR VOLUME 83 fL (79-100); MONO # 0.4 x10^3/uL (0.0-1.1); MONO % 4 % (0-9); NEUT # 8.2 x10^3uL (1.8-7.7); NEUT % 83 % (31-73); PLATELET COUNT 271 x10^3/uL (140-400); RED BLOOD COUNT 4.95 x10^6/uL (4.30-5.70); RED CELL DISTRIBUTION WIDTH 17.5 % (11.5-14.5); WHITE BLOOD COUNT 9.9 x10^3/uL (4.0-11.0)
[2019-01-16 16:30] LABS: ALBUMIN 3.2 g/dL (3.4-5.0); ALBUMIN/GLOBULIN RATIO 0.8 (1.0-1.7); CALCIUM 8.9 mg/dL (8.5-10.1); GFR 71.7; POTASSIUM 4.1 mmol/L (3.5-5.1); TOTAL BILIRUBIN 0.4 mg/dL (0.2-1.0); TOTAL PROTEIN 7.4 g/dL (6.4-8.2)
--- NOTE | 2019-01-16 17:07 | RAD ---
Chest radiograph 01/16/2019 4:25 PM INDICATION: Pulmonary fibrosis. COMPARISON: Chest radiograph February 25, 2016 TECHNIQUE: Frontal and lateral views of the chest are provided. FINDINGS: The cardiomediastinal silhouette is enlarged, stable. Bilateral perihilar interstitial changes are present with distribution similar to the prior examination from February 25, 2016. There appears to be increase in reticular interstitial changes in the subpleural distribution of the bilateral upper lobes. Biapical pleural-parenchymal scarring is noted. There is deviation of the trachea to the right. There is increased pleural thickening along the minor fissure. No significant pleural effusions or pneumothorax. Bilateral shoulder arthroplasty is noted. IMPRESSION: Constellation of findings appears to reflect progression interstitial lung disease since the prior examination from February 25, 2016. No focal airspace consolidation is identified to suggest superimposed pneumonia. Underlying COPD changes are suspected. Electronically signed by: Lissa Fairchild MD (01/16/2019 5:04 PM) [facility]
== END | disposition home or self-care (01) ==
LOC: SURGPAT 13:22
PROVIDERS: ATTEND Neurological Surgery
DX: Z01.818 Encounter for other preprocedural examination (principal); M48.061 Spinal stenosis, lumbar region without neurogenic claudication; J39.8 Other specified diseases of upper respiratory tract; Z87.09 Personal history of other diseases of the respiratory system
CPT/HCPCS: 36415; 71046; 80053; 85025; 87641; 93005

== ENCOUNTER 2019-01-19 10:27 | Day surgery (SDC) | payer MEDICARE ==
[~2019-01-19] VITALS: Ht 170.2 cm; Wt 81.6 kg
--- NOTE | 2019-01-19 09:53 | PREOP HP ---
DATE OF SERVICE: 01/19/2019 DATE OF SURGERY: 01/19/2019 HISTORY OF PRESENT ILLNESS: The patient is a pleasant 83-year-old who is having difficulty with low back pain and pain which radiates into his right hip and right anterior thigh. It has been present for about 6 months. He rates his pain currently as a 6/10. The problem started spontaneously. Walking and virtually any activity increases his pain. Ice and heat help. He has been taking Maxatawny 5. He had 2 epidural steroid injections, which gave him short term relief up to 1 week. PAST MEDICAL HISTORY: Arthritis, artificial joint, asthma, blood clots, COPD, kidney stones, lung disease, PE, stomach or intestinal disease, tonsillitis, subdural hematoma. PAST SURGICAL HISTORY: Left knee surgery in 1977, left knee surgery in 1979, left elbow surgery in 1982, left shoulder in 1987, right shoulder in 1996, a PE in 2000, appendectomy in 2002, bunionectomy in 2012, cataract 2013. Blood clot in 2013. GI bleed in 2013, IVC filter placed in 2013, left knee surgery in 2013, left shoulder surgery in 2013, left knee surgery in 2015, right shoulder surgery in 2016, left hip replacement 2017. FAMILY HISTORY: No family history documented. SOCIAL HISTORY: Retired. . Denies exercise. Former smoker. Drinks alcohol 1-2 times per month. Drinks coffee and soda daily. ALLERGIES: No known drug allergies. CURRENT MEDICATIONS: Prilosec, Perforomist, Spiriva, albuterol, Xarelto, vitamin D, Maxatawny. REVIEW OF SYSTEMS: A 12-point review of systems was obtained and is noncontributory except that mentioned above. PHYSICAL EXAMINATION: NEUROSURGERY EXAMINATION: GENERAL APPEARANCE: Alert, pleasant, no acute distress. HEAD: Normocephalic and atraumatic. SKIN: Warm and dry. MUSCULOSKELETAL: Lumbar paraspinal muscle bulk is normal, restricted range of motion to the lumbar spine, [id number] tenderness of the lumbar spine with palpation. Normal range of motion of the lower extremities bilaterally. EXTREMITIES: Internal and external rotation of the hips was unremarkable. No clubbing, cyanosis or edema. NEUROLOGIC: Alert and oriented x 3, normal recent and remote memory, strength 5/5 in bilateral lower extremities. Sensory was intact to light touch in the lower extremities. Reflexes were present and symmetric in bilateral lower extremities, negative straight leg raising bilaterally, normal gait. IMAGING: I reviewed a lumbar MRI scan from 10/06/2018. On that study, there are degenerative changes at L4, L5, S1. At L5-S1, there is moderate lateral central canal stenosis on the right along with moderately severe right lateral recess and right neural foraminal narrowing. ASSESSMENT/PLAN: I feel the problems at L5-S1 on the right are responsible for a significant portion of the patient's pain. I have recommended a lumbar microdecompression on that side to include proximal foramen. I did discuss this with him in detail including the technique, risks, and expected postoperative course. He understands. He would like to go ahead. We will make the arrangements. NIKIA JOHNSON MD DR: JAMEEL/rand JOB#: [id number] / [id number] JEFF
[~2019-01-19 10:27] MED LIST changes: +BACITRACIN 50,000 UNIT in IV NORMAL SALINE 1000ML BAG 1,000 ML IRR ONE; +BUPIVAC MPF-EPI 0.5%-1:200000 30 ML VIAL. ONE; +DESFLURANE 61 TO 120 MINUTES IH ONE; +DEXAMETHASONE SOD PHOS 20 MG/5 ML VIAL. ONE; -DOCU-109 PO; +GELATIN SPONGE SIZE 12-7MM SPONGE. TP ONE; -HYDR-3164 PO; +HYDROmorphone 2 MG/ML VIAL IV PRN; +IV RINGERS,LACTATED 1000ML 1,000 ML IV SCH; +KETOROLAC 60 MG/2 ML INJ FOR OR. ONE; +LIDOCAINE 1% PF 2 ML VIAL. ID PRN; +MORPHINE SULFATE 4 MG/ML VIAL. IV PRN; +ONDANSETRON PF 4 MG/2 ML VIAL. IV PRN; +ONDANSETRON PF 4 MG/2 ML VIAL. ONE; +PROCHLORPERAZINE 10 MG/2 ML VIAL. IV PRN; +PROPOFOL 20 ML IV ONE; +PROPOFOL 50 ML IV ONE; +REMIFENTANIL 2 MG VIAL. IV ONE; +ROCURONIUM 50 MG/5 ML VIAL. ONE; +THROMBIN TOPICAL 20,000 UNIT SPRAY.SYRN KIT TP ONE; +fentaNYL PF VIAL 100 MCG/2 ML VIAL IV PRN; +fentaNYL PF VIAL 100 MCG/2 ML VIAL ONE
[2019-01-19 11:25] LABS: PROTHROMBIN TIME PATIENT 14.1 SEC (11.7-14.0)
[2019-01-19] MEDS ORDERED: GLYCOPYRROLATE 1 MG/5 ML VIAL. ONE (12:43)
[2019-01-19] MEDS ORDERED: NEOSTIGMINE 10 MG/10 ML VIAL. ONE (12:46)
[2019-01-19] MEDS ORDERED: SEVOFLURANE 61 TO 120 MINUTES. IH ONE (13:25)
[2019-01-19] MEDS ORDERED: SEVOFLURANE > 120 MINUTES. IH ONE (14:09)
--- NOTE | 2019-01-19 14:51 | DISCH ---
DISCHARGE INSTRUCTIONS Condition on Discharge Condition on Discharge: Stable Activity After Discharge Activity Instructions for Disc: Activity as tolerated, Avoid exertion Other activity instructions: no driving for a week Bathing Instructions: Shower-keep dressing dry Lifting Instructions after Dis: No heavy lifting, No pulling or pushing, Do not lift >10 pounds, Add. restrict see below Exercise Instruction after Dis: Exercise per therapy Driving Instructions after Dis: Do not drive today Weight Bearing Status after Di: Full weight bearing Diet after Discharge Diet after Discharge: Regular Additional Diet Restrictions: resume home diet Diet Texture: Regular Liquid Texture: Thin Liquid Swallowing Supervision: None needed Wound Incision Care Wound/Incision Care: Ice to area for comfort, Other, see below Other wound/incision instructi: may remove dressing in 48 hrs if dry then may shower, no soaking Checks after Discharge Checks after discharge: Check blood press - daily Contacting the DRHarvey after DC Call your doctor for: Concerns you may have Follow-Up Follow up with: Dr. Johnson's nurse in 2 weeks [phone] Treatment/Equipment after DC Adaptive Equipment Issued: None Discharge Respiratory Equipmen: Oxygen Warfarin Follow-Up Warfarin Follow UP: restart xarelto 01/20/19 NIKIA JOHNSON MD Jan 19, 2019 14:50
[2019-01-19] MEDS ORDERED: HYDR-3164 PO (14:54)
[2019-01-19] MEDS ORDERED: DOCU-109 PO (14:54)
--- NOTE | 2019-01-19 15:12 | OP ---
DATE OF SURGERY: 01/19/2019 PREOPERATIVE DIAGNOSIS: Severe lateral central canal and foraminal stenosis, right L5-S1. POSTOPERATIVE DIAGNOSIS: Severe lateral central canal and foraminal stenosis, right L5-S1. OPERATION PERFORMED: Hemilaminotomy and transforaminal exposure, L5-S1 right with decompression of the right L5 and S1 nerve roots in the spinal canal. The operation was done with EMG monitoring, fluoroscopy, microscopic dissection. SURGEON: Edward Johnson M.D. PHARMACY GENERAL MANAGER: TRINH Suggs assisted with surgery. She assisted with the exposure, the microdecompression as well as the closure. OPERATIVE INDICATIONS: The patient is a pleasant 83-year-old man who developed severe intractable back pain along with pain, which radiated into his right hip and right proximal anterior thigh. The problem has been present for 6 months, and has become more and more severe. On imaging studies, he had above-mentioned findings and I recommended lumbar microsurgery. I spoke with him about the technique and expected postoperative course. He did have problems with pulmonary issues and care was maintained to avoid any barotrauma throughout the case. The patient understood the surgery, the risks, the technique and he wished to go forward. DESCRIPTION OF PROCEDURE: Following general endotracheal anesthesia, the patient was placed prone on the Jabier table. Lumbar region prepped and draped in standard fashion. JUDI hose and AV impulse boots were applied for DVT prophylaxis. The microscope was draped. Fluoroscopy was draped and brought into field. Monitoring was established. Ancef 2 grams was given less than 1 hour prior to initiation of surgery. Using fluoroscopic guidance, a midline incision was made over the L5-S1 interspace and dissected down skin and subcutaneous tissue, reflected the paraspinal muscles to the right and placed a [place] micro disc retractor. I brought in the microscope and the remainder of surgery done with microscope using microscopic technique. There was a large osteophytic collection of bone on the inferior aspect of the L5 spinous process on the right side and I drilled this away and closed this area with bone wax. I then went through the microscope with microscopic technique down to the interspace and began to drill bone. The ligamentum flavum appeared to have ended below the disc space. I did perform a generous foraminotomy starting inferiorly, working superiorly, but at the level of the disc, the ligaments rapidly thinned in an unusual fashion. There was considerable thickening of the lateral ligament, hypertrophic bone, which was markedly compressing the dura and at the level above the disc space, the L5 root was markedly compressed in the foramen from hypertrophic bone compressing down into the neural foramen plus posterior bulging disc. I drilled and thinned the bone. I removed the bone, exposed the dura. I worked superiorly up to the edge of the pedicle of L5 and followed the L5 root around and then drilled the bone over this and removed this. As I removed the bone and decompress, the region of the nerve became very well decompressed and it moved laterally. I then worked quite far inferiorly beneath the ligament, which was positioned in an unusual way in that it was reset lower in the graft and then peeled ligament from medial to lateral and then trimmed lateral ligament away. I did perform a generous partial foraminotomy over the S1 root and I had an excellent exposure of the L5 root as well. As I peeled this ligament laterally, I fully decompress the entire region. The decompression was problematic and that it was extremely narrow and I had to thin the overlying bone posterolaterally over the dura and the takeoff of the L5 root and then peel and removed this bone from medial to lateral. I was able to put 2 and 2.5-mm Fehling Kerrisons into the space and gradually, I was able to decompress the entire region. Following this, then I explored carefully, the L5 and S1 roots were well decompressed. The dura had moved quite far laterally to occupy the space created. The roots were very free. I irrigated copiously. Hemostasis was never a problem. I did coagulate a few veins with the bipolar cautery. I did use small amounts of bone wax during the drilling process. I removed the retractor, obtained hemostasis in the muscle. I closed the wound in layers with absorbable suture. The skin was closed with 4-0 subcuticular stitch. I felt the surgery went very well. EDWARD JOHNSON MD DR: JAMEEL/rand JOB#: [id number] / [id number] JEFF
[2019-01-19] MEDS ORDERED: fentaNYL PF VIAL 100 MCG/2 ML VIAL ONE (15:34)
[2019-01-19] MEDS: fentaNYL PF VIAL 100 MCG/2 ML VIAL IV PRN ×2 (15:39→15:54)
[2019-01-19] MEDS ORDERED: HYDROcodone/APAP 5/325MG 1 TAB TABLET PO ONE (16:00)
[2019-01-19 16:44] VITALS: BP 157/85
--- NOTE | 2019-01-24 09:10 | PATHOLOGY ---
[facility] Accession Number: [id number] . 01 Material submitted: . LUMBAR DECOMPRESSION . 01 Clinical history: . Lumbar stenosis. . 02 Diagnosis: "Lumbar decompression", removal: - Portions of fibrocartilage with focal degenerative changes. - Portions of unremarkable fibrous tissue and skeletal muscle. . ([facility]:mml; 01/20/2019) QLM/01/20/2019 . 02 Electronically signed: . Alan Don MD, Pathologist NPI- [id number] . 01 Gross description: . Received in formalin labeled "Michael Penaloza, lumbar decompression" is a 3.5 x 2.8 x 0.5 cm aggregate of montero-pink friable soft tissue fragments and scant montero-white bone. Simplex Operator sections of the specimen are submitted in cassette A1 following decalcification. ([facility]; 01/19/2019) SYC/SYC . 02 Pathologist provided ICD-10: M51.36 . 02 CPT . 003525 Specimen Comment: A courtesy copy of this report has been sent to Specimen Comment: [phone]. Specimen Comment: Report sent to Performed at: 01 [facility] [address], [place] [id number] MD Matty Steel MD Phone: [phone] Performed at: 02 [facility] [address] [id number] MD Js Velarde MD Phone: [phone]
== END 2019-01-19 17:16 | disposition home or self-care (01) ==
LOC: SURG 10:27
PROVIDERS: ATTEND Neurological Surgery
DX: M48.062 Spinal stenosis, lumbar region with neurogenic claudication (principal); M54.16 Radiculopathy, lumbar region; J44.9 Chronic obstructive pulmonary disease, unspecified; M19.90 Unspecified osteoarthritis, unspecified site; Z87.442 Personal history of urinary calculi; Z86.711 Personal history of pulmonary embolism; Z98.890 Other specified postprocedural states; Z90.49 Acquired absence of other specified parts of digestive tract; Z96.642 Presence of left artificial hip joint; Z87.891 Personal history of nicotine dependence; Z72.89 Other problems related to lifestyle; Z79.899 Other long term (current) drug therapy; Z88.8 Allergy status to other drugs, medicaments and biological substances; Z79.01 Long term (current) use of anticoagulants
CPT/HCPCS: 36415; 63047; 76000; 85610; 85730; 97162; 97530; A7015; G8978; G8979; G8980; J0696; J1100; J1885; J2405; J2704; J2710; J3010; J3490; J7030; J7120; 88304

== ENCOUNTER → 2019-08-01 | Outpatient (CLI) | payer MEDICARE ==
[~2019-08-01] MED LIST changes: -BACITRACIN 50,000 UNIT in IV NORMAL SALINE 1000ML BAG 1,000 ML IRR ONE; -BUPIVAC MPF-EPI 0.5%-1:200000 30 ML VIAL. ONE; -DESFLURANE 61 TO 120 MINUTES IH ONE; -DEXAMETHASONE SOD PHOS 20 MG/5 ML VIAL. ONE; +DOCU-109 PO; +GADOTERATE 5 MMOL/10ML VIAL. IVP ONE; -GELATIN SPONGE SIZE 12-7MM SPONGE. TP ONE; +HYDR-3164 PO; -HYDROmorphone 2 MG/ML VIAL IV PRN; -IV RINGERS,LACTATED 1000ML 1,000 ML IV SCH; -KETOROLAC 60 MG/2 ML INJ FOR OR. ONE; -LIDOCAINE 1% PF 2 ML VIAL. ID PRN; -MORPHINE SULFATE 4 MG/ML VIAL. IV PRN; -ONDANSETRON PF 4 MG/2 ML VIAL. IV PRN; -ONDANSETRON PF 4 MG/2 ML VIAL. ONE; -PROCHLORPERAZINE 10 MG/2 ML VIAL. IV PRN; -PROPOFOL 20 ML IV ONE; -PROPOFOL 50 ML IV ONE; -REMIFENTANIL 2 MG VIAL. IV ONE; -ROCURONIUM 50 MG/5 ML VIAL. ONE; -THROMBIN TOPICAL 20,000 UNIT SPRAY.SYRN KIT TP ONE; -fentaNYL PF VIAL 100 MCG/2 ML VIAL IV PRN; -fentaNYL PF VIAL 100 MCG/2 ML VIAL ONE
--- NOTE | 2019-08-01 13:25 | KCIC ---
LUMBAR SPINE WO/W CONTRAST History: Radiculopathy. Right lower extremity pain. Technique: Multiplanar, multi sequential MR imaging was performed of the lumbar spine with and without contrast. Contrast: 16 mL Dotarem Comparison: October 04, 2018 Findings: Interval right L5 hemilaminotomy with small fluid collection and postoperative enhancement. Grade 1 anterolisthesis L5 on S1, unchanged. Otherwise, normal alignment. Normal vertebral body height. Increased bone marrow edema within the right L5 pedicle compared to prior. No pathologic marrow replacing process. Conus terminates at the normal location. No evidence of nerve root clumping. No pathologic enhancement. L1-L2: Small posterior disc bulge. Mild facet arthropathy. No canal or neuroforaminal narrowing. L2-L3: Small posterior disc bulge. Mild facet arthropathy. Mild left subarticular recess narrowing. No canal narrowing. No neuroforaminal narrowing. L3-L4: Small posterior disc bulge. Mild facet arthropathy. Mild right particular recess narrowing. No canal narrowing. Mild right neural foraminal narrowing. L4-L5: Small posterior disc bulge. Moderate facet arthropathy. No canal narrowing. Mild right and mild to moderate left neuroforaminal narrowing. L5-S1: Interval right hemilaminotomy. Decreased right lateral canal narrowing. Anterolisthesis. Disc uncovering. Advanced facet arthropathy. No canal narrowing. Severe right and moderate left neural foraminal narrowing. Enhancement along the right posterior lateral epidural space Impression: 1. Interval right L5-S1 hemilaminotomy with decreased subarticular recess narrowing. Enhancement along the right L5-S1 posterior lateral epidural space, likely epidural fibrosis. 2. Multilevel lumbar spondylosis with multilevel subarticular recess narrowing most prominent left L2-L3, and right L3-L4, unchanged. 3. Multilevel neural foraminal narrowing most prominent right L5-S1, unchanged. Electronically signed by: Sanya Valle DO (08/01/2019 1:22 PM) [facility]
--- NOTE | 2019-08-01 16:57 | KCIC ---
Flexion and extension lateral views of the lumbar spine Clinical indications: New right-sided radiculopathy. Previous surgery. FINDINGS: There is a grade 1 anterolisthesis of L5-S1 which measures 7 mm in extension and 10 mm in flexion. Degenerative facet arthropathy and seen at L4-5 and L5-S1. No compression fracture or discitis or lytic process is evident. There is degenerative disc space narrowing and endplate spurring throughout the lumbar spine and lumbosacral junction most severe at L4-5. IVC filter is apparent. Calcified atheromatous changes of the abdominal aorta are seen. Interstitial lung disease is evident. This could be seen on previous chest x-ray dated January 16, 2019. IMPRESSION: Grade 1 anterolisthesis of L5-S1. Degenerative lumbar spondylosis. Electronically signed by: Julio Falcon MD (08/01/2019 4:54 PM) [facility]
== END | disposition home or self-care (01) ==
LOC: KCIC MRI 09:57
PROVIDERS: ATTEND Neurological Surgery
DX: M47.26 Other spondylosis with radiculopathy, lumbar region (principal); M48.07 Spinal stenosis, lumbosacral region; J84.9 Interstitial pulmonary disease, unspecified; M12.88 Other specific arthropathies, not elsewhere classified, other specified site; M43.16 Spondylolisthesis, lumbar region; I70.0 Atherosclerosis of aorta
CPT/HCPCS: 72100; 72158; 82565; A9575

== ENCOUNTER → 2019-08-17 | Outpatient (CLI) | payer MEDICARE ==
[~2019-08-17] MED LIST changes: -GADOTERATE 5 MMOL/10ML VIAL. IVP ONE
[2019-08-17 12:21] LABS: BASO # 0.1 x10^3/uL (0.0-0.2); BASO % 1 % (0-3); EOS # 0.3 x10^3/uL (0.0-0.7); EOS % 3 % (0-3); HEMATOCRIT 41.3 % (39.0-53.0); HEMOGLOBIN 13.4 g/dL (13.0-17.5); LYMPH # 3.7 x10^3/uL (1.0-4.8); LYMPH % 32 % (24-48); MEAN CORPUSCULAR HEMOGLOBIN 27 pg (25-35); MEAN CORPUSCULAR HGB CONC 32 g/dL (31-37); MEAN CORPUSCULAR VOLUME 84 fL (79-100); MONO # 1.1 x10^3/uL (0.0-1.1); MONO % 9 % (0-9); NEUT # 6.5 x10^3/uL (1.8-7.7); NEUT % 55 % (31-73); PLATELET COUNT 256 x10^3/uL (140-400); RED BLOOD COUNT 4.93 x10^6/uL (4.30-5.70); RED CELL DISTRIBUTION WIDTH 17.8 % (11.5-14.5); WHITE BLOOD COUNT 11.7 x10^3/uL (4.0-11.0)
[2019-08-17 12:55] LABS: ALBUMIN 3.7 g/dL (3.4-5.0); CALCIUM 9.5 mg/dL (8.5-10.1); CREATININE 1.2 mg/dL (0.7-1.3); POTASSIUM 3.8 mmol/L (3.5-5.1); TOTAL BILIRUBIN 0.6 mg/dL (0.2-1.0); TOTAL PROTEIN 7.5 g/dL (6.4-8.2)
[2019-08-17 22:12] LABS: CALCIUM PTH 9.7 mg/dL (8.6-10.2); CREATININE PTH 1.11 mg/dL (0.76-1.27); PHOSPHORUS PTH 3.7 mg/dL (2.5-4.5); PTH INTACT 43 pg/mL (15-65)
== END | disposition home or self-care (01) ==
LOC: LAB 11:48
PROVIDERS: ATTEND Orthopaedic Surgery
DX: Z09 Encounter for follow-up examination after completed treatment for conditions other than malignant neoplasm (principal); Z96.612 Presence of left artificial shoulder joint; Z79.899 Other long term (current) drug therapy
CPT/HCPCS: 36415; 80053; 82306; 83970; 84443; 85025

== ENCOUNTER → 2019-08-21 | Outpatient (CLI) | payer MEDICARE ==
--- NOTE | 2019-08-21 14:32 | KCIC ---
EXAM: Dual energy x-ray absorptiometry (DEXA). HISTORY: 84-year-old female with a hip fracture presents for osteoporosis screening. COMPARISON: None. TECHNIQUE: Dual energy x-ray absorptiometry of the lumbar spine and right hip was performed. Calculation of bone mineral density based on standard deviations above or below the expected young adult normal value (T-score) was completed. FINDINGS: The average bone mineral density in the 1st through 4th lumbar vertebrae is 0.976 g/cmxcm, corresponding with a T-score of -1.0. The average total bone mineral density in the right hip is 0.618 g/cmxcm, corresponding with a T-score of -2.8. IMPRESSION: 1. Osteoporosis measured at the right hip. 2. Borderline osteopenia measured at the lumbar spine. Note: Definitions established by the World Health Organization: 1. Normal: T-score is -1.0 or above. 2. Osteopenia: T-score is between -1.0 and -2.5 . 3. Osteoporosis: T-score is -2.5 or below. Electronically signed by: Marta Eason MD (08/21/2019 2:29 PM) [place] [id number]
== END | disposition home or self-care (01) ==
LOC: KCIC DEXA 12:30
PROVIDERS: ATTEND Orthopaedic Surgery
DX: M81.8 Other osteoporosis without current pathological fracture (principal); M85.88 Other specified disorders of bone density and structure, other site
CPT/HCPCS: 77080

== ENCOUNTER → 2019-09-11 | Outpatient (CLI) | payer MEDICARE ==
[~2019-09-11] MED LIST changes: -ALBU2.5V8 IH; +PROVENTIL HFA6.7 GM IH
[2019-09-11 12:21] LABS: PROTHROMBIN TIME PATIENT 20.5 SEC (11.7-14.0)
--- NOTE | 2019-09-12 13:37 | HP ---
ADMIT DATE: DATE OF PROPOSED SURGERY: 09/18/2019. HISTORY OF PRESENT ILLNESS: The patient is a pleasant 84-year-old who has difficulty with low back pain and pain which radiates into his right posterior thigh and leg. He underwent surgery in December at L5-S1 and did very well until about 6 weeks ago when he suddenly developed significant pain in his lower back, right buttock and posterior thigh. He rates his pain as a 6/10 and he says his pain is constant. He takes Tylenol, Reasnor, and he does not feel like those helped much because his pain is so severe. He has taken physical therapy, which he said helped a little, but he continues to have significant pain. I studied him with flexion and extension films as well as new lumbar MRI scan. PAST MEDICAL HISTORY: Arthritis, artificial joint, asthma, blood clots, COPD, kidney stones, lung disease, PE, stomach and intestinal disease, tonsillitis, subdural hematoma. PAST SURGICAL HISTORY: Left knee surgery in 1977, left knee surgery in 1979, left elbow in 1982, left shoulder in 1987, right shoulder in 1996, a PE in 2000, appendectomy in 2002, bunionectomy in 2012, cataract surgery in 2013, GI bleed in 2013, IVC filter in 2013, left knee replacement in 2013, left shoulder 2013, left knee surgery in 2015, right shoulder 2016. DICTATION ENDS HERE. NIKIA JOHNSON MD DR: JAMEEL/rand JOB#: [id number] / [id number]
== END | disposition home or self-care (01) ==
LOC: SURGPAT 11:14
PROVIDERS: ATTEND Neurological Surgery
DX: Z01.818 Encounter for other preprocedural examination (principal); M43.16 Spondylolisthesis, lumbar region; M47.26 Other spondylosis with radiculopathy, lumbar region; Z88.8 Allergy status to other drugs, medicaments and biological substances
CPT/HCPCS: 36415; 85610; 85730; 87641

== ENCOUNTER → 2019-09-29 | Outpatient (CLI) | payer MEDICARE ==
--- NOTE | 2019-09-29 17:06 | KCIC ---
PA and lateral chest. HISTORY: Pneumonia J 18.9 PA and lateral views the chest were compared with a study from December 2018. The heart is enlarged. There is worsening interstitial lung disease which could be worsening fibrosis or interstitial pneumonia versus mild vascular congestion or edema versus an atypical pneumonia. There is pleural thickening unchanged. There is no pleural effusion. IMPRESSION: 1. Cardiomegaly. 2. Diffuse interstitial lung disease with mild worsening compared to the prior study. Electronically signed by: Jamie Xavier MD (09/29/2019 5:03 PM) [facility]
== END | disposition home or self-care (01) ==
LOC: KCIC 15:16
PROVIDERS: ATTEND Family Medicine
DX: J84.89 Other specified interstitial pulmonary diseases (principal); I51.7 Cardiomegaly; J92.9 Pleural plaque without asbestos; J44.9 Chronic obstructive pulmonary disease, unspecified; J18.9 Pneumonia, unspecified organism
CPT/HCPCS: 71046

== ENCOUNTER → 2019-10-09 | Outpatient (CLI) | payer MEDICARE, BC ==
[~2019-10-09] MED LIST changes: +PERFLUTREN PROTEIN-A MICROSPHR 0.22 MG/ML 3 ML VIAL. IV ONE
--- NOTE | 2019-10-09 16:29 | CARD ---
MR#: [id number] Date of Study: 10/09/2019 Ordering Physician: MAXX SILVA, Referring Physician: Laurel SAUCEDO: Maya Braun APPROVED REPORT EXAM: Two-dimensional and M-mode echocardiogram with Doppler and color Doppler. Other Information Quality : AverageHR: 61bpm INDICATION Cardiomyopathy Echo Enhancing Agent Indication: R/O Myxoma on IAS Agent/Amount Used: Optison 2mL 2D DIMENSIONS RVDd3.4 (2.9-3.5cm)Left Atrium(2D)4.1 (1.6-4.0cm) IVSd1.1 (0.7-1.1cm)Aortic Root(2D)2.5 (2.0-3.7cm) LVDd3.9 (3.9-5.9cm)LVOT Diameter2.1 (1.8-2.4cm) PWd1.1 (0.7-1.1cm)LVDs2.6 (2.5-4.0cm) FS (%) 32.7 %SV40.1 ml LVEF(%)61.8 (>50%) Aortic Valve AoV Peak Chirag.145.6cm/sAoV VTI27.2cm AO Peak GR.8.5mmHgLVOT Peak Chirag.101.8cm/s AO Mean GR.4mmHgAVA (VMAX)2.45cm2 Mitral Valve MV E Ijavjzyk07.4cm/sMV E Peak Gr.2mmHg MV DECEL [id number] A Lzbvmmaw87.0cm/s MV E Mean Gr.1mmHgE/A Ratio0.8 Pulmonary Valve PV Peak Sfectjbm107.2cm/s Tricuspid Valve TR P. Nlzpyvxw113bs/sRAP MVASDSNW6tiQb TR Peak Gr.75fmZnZWOW74ahUi Pulmonary Vein S1 Todnpimm14.2cm/sD2 Ntnegmls40.8cm/s LEFT VENTRICLE The left ventricle is normal size. There is normal left ventricular wall thickness. The left ventricu lar systolic function is normal and the ejection fraction is within normal range. The Ejection Fracti on is 55-60%. There is normal LV segmental wall motion. Transmitral Doppler flow pattern is Grade I-a bnormal relaxation pattern. RIGHT VENTRICLE The right ventricle is normal size. There is normal right ventricular wall thickness. The right ventr icular systolic function is normal. ATRIA The left atrium is mildly dilated. The left atrium is mildly dilated. The right atrium size is normal . The interatrial septum has a thickened appearance. Could not rule out a Myxoma versus a Lypomatus s eptum. Contrast and M-mode were used to try to differentiate, however it was difficult due suboptimal images. AORTIC VALVE The aortic valve is thickened but opens well. Doppler and Color Flow revealed trace aortic regurgitat ion. There is no significant aortic valvular stenosis. MITRAL VALVE The mitral valve is thickened but opens well. There is no evidence of mitral valve prolapse. There is no mitral valve stenosis. Doppler and Color-flow revealed trace mitral regurgitation. TRICUSPID VALVE The tricuspid valve is normal in structure and function. Doppler and Color Flow revealed mild tricusp id regurgitation. There is no tricuspid valve stenosis. PULMONIC VALVE The pulmonic valve is not well visualized. Doppler and Color Flow revealed trace pulmonic valvular re gurgitation. There is no pulmonic valvular stenosis. GREAT VESSELS The aortic root is mildly enlarged. The ascending aorta is Mildly dilated. The IVC has a thickened ap pearance. PERICARDIAL EFFUSION There is no pleural effusion. There is a small circumferential pericardial effusion. Critical Notification Critical Value: No <Conclusion> The left ventricular systolic function is normal and the ejection fraction is within normal range. Th e Ejection Fraction is 55-60%. There is normal LV segmental wall motion. The interatrial septum has a thickened appearance. Could not rule out a Myxoma versus a Lypomatus se ptum. Contrast and M-mode were used to try to differentiate, however it was difficult due suboptimal images. There is a small circumferential pericardial effusion. Consider JENNI for further delineation of possible myxoma on the right atrial side of the interatrial s eptum. Signed by : Dominic Ortiz, Electronically Approved : 10/09/2019 16:29:07
== END | disposition home or self-care (01) ==
LOC: ECHO 14:40
PROVIDERS: ATTEND Internal Medicine Cardiovascular Disease
DX: I07.1 Rheumatic tricuspid insufficiency (principal); I31.3 Pericardial effusion (noninflammatory); I42.9 Cardiomyopathy, unspecified
CPT/HCPCS: C8929; Q9956

== ENCOUNTER → 2019-10-23 | Outpatient (CLI) | payer MEDICARE, BC ==
[~2019-10-23] MED LIST changes: +HYDROcodone/APAP 7.5/325MG 1 TAB TABLET PO ONE; +HYDROmorphone 2 MG/ML VIAL IV PRN; +IV RINGERS,LACTATED 1000ML 1,000 ML IV SCH; +LIDOCAINE 1% PF 2 ML VIAL. ID PRN; +METO-239 PO; +MORPHINE SULFATE 2 MG/ML VIAL. IV PRN; +ONDANSETRON PF 4 MG/2 ML VIAL. IV PRN; -PERFLUTREN PROTEIN-A MICROSPHR 0.22 MG/ML 3 ML VIAL. IV ONE; +PROCHLORPERAZINE 10 MG/2 ML VIAL. IV PRN; +fentaNYL PF VIAL 100 MCG/2 ML VIAL IV PRN
--- NOTE | 2019-10-23 11:37 | CARD ---
MR#: [id number] Date of Study: 10/23/2019 Ordering Physician: MAXX SILVA Referring Physician: Laurel SAUCEDO: Janie Sheets APPROVED REPORT EXAM: Transesophageal echocardiogram with color flow Doppler. INDICATION Myxoma IAS 2D DIMENSIONS Aortic Root(2D)3.9 (2.0-3.7cm) Reason For Test : Rule out Intracardiac Thrombus. PROCEDURE After obtaining informed consent, patient underwent transesophageal echo in the PACU. Type of Sedation : General Anesthesia Sedation was administered by Stefania Cabello. Sedation was achieved with Propofol 170mg intravenously. Transesophageal probe was inserted and advanced into esophagus by Maxx Silva MD. The JENNI was performed without complications. Throughout the procedure, the blood pressure, pulse oximetry, cardiac rhythm, and rate were monitored . The patient tolerated the procedure without adverse effects. Recovery from general anesthesia was une ventful and vital signs were stable. LEFT VENTRICLE The left ventricle is normal size. There is normal left ventricular wall thickness. The left ventricu lar systolic function is normal. The Ejection Fraction is 55-60%. There is normal LV segmental wall m otion. RIGHT VENTRICLE The right ventricle is normal size. There is normal right ventricular wall thickness. The right ventr icular systolic function is normal. ATRIA The left atrium is mildly dilated. The right atrium size is normal. Lipomatous hypertrophy of interat rial septum. No evidence of myxoma. There is no thrombus noted in the left atrial appendage. The atri al appendage appears small. AORTIC VALVE The aortic valve is thickened but opens well. Doppler and Color Flow revealed trace aortic regurgitat ion. There is no significant aortic valvular stenosis. MITRAL VALVE The mitral valve is thickened but opens well. There is no evidence of mitral valve prolapse. There is no mitral valve stenosis. Doppler and Color-flow revealed trace mitral regurgitation. TRICUSPID VALVE The tricuspid valve is normal in structure and function. Doppler and Color Flow revealed mild tricusp id regurgitation. There is no tricuspid valve stenosis. PULMONIC VALVE The pulmonic valve is not well visualized. Doppler and Color Flow revealed trace pulmonic valvular re gurgitation. There is no pulmonic valvular stenosis. GREAT VESSELS The aortic root is mildly enlarged. Normal pulmonary venous flow (Doppler). PERICARDIAL EFFUSION There is no evidence of significant pericardial effusion. There is no pleural effusion. Critical Notification Critical Value: No <Conclusion> The left ventricular systolic function is normal. The Ejection Fraction is 55-60%. There is normal LV segmental wall motion. Lipomatous hypertrophy of interatrial septum. No evidence of myxoma. Trace mitral regurgitation. Mild tricuspid regurgitation. The aortic root is mildly enlarged. There is no evidence of significant pericardial effusion. Signed by : Maxx Silva, Electronically Approved : 10/23/2019 11:37:01
[2019-10-23 11:50] VITALS: BP 145/68
== END | disposition home or self-care (01) ==
LOC: ECHO 09:10
PROVIDERS: ATTEND Internal Medicine Cardiovascular Disease
DX: I07.1 Rheumatic tricuspid insufficiency (principal); D15.1 Benign neoplasm of heart
CPT/HCPCS: 93312

== ENCOUNTER → 2019-11-20 | Outpatient (CLI) | payer MEDICARE, BC ==
[2019-10-23 11:50] VITALS: BP 145/68
[~2019-11-20] MED LIST changes: +DOCU-153 PO; -HYDROcodone/APAP 7.5/325MG 1 TAB TABLET PO ONE; -HYDROmorphone 2 MG/ML VIAL IV PRN; -IV RINGERS,LACTATED 1000ML 1,000 ML IV SCH; -LIDOCAINE 1% PF 2 ML VIAL. ID PRN; -MORPHINE SULFATE 2 MG/ML VIAL. IV PRN; -ONDANSETRON PF 4 MG/2 ML VIAL. IV PRN; -PROCHLORPERAZINE 10 MG/2 ML VIAL. IV PRN; -fentaNYL PF VIAL 100 MCG/2 ML VIAL IV PRN
[2019-11-20 15:08] LABS: BASO % 0 % (0-3); EOS % 0 % (0-3); HEMATOCRIT 39.7 % (39.0-53.0); HEMOGLOBIN 12.8 g/dL (13.0-17.5); LYMPH # 0.9 x10^3/uL (1.0-4.8); LYMPH % 8 % (24-48); MEAN CORPUSCULAR HEMOGLOBIN 28 pg (25-35); MEAN CORPUSCULAR HGB CONC 32 g/dL (31-37); MEAN CORPUSCULAR VOLUME 86 fL (79-100); MONO # 0.3 x10^3/uL (0.0-1.1); MONO % 3 % (0-9); NEUT # 9.3 x10^3/uL (1.8-7.7); NEUT % 88 % (31-73); PLATELET COUNT 257 x10^3/uL (140-400); RED CELL DISTRIBUTION WIDTH 17.3 % (11.5-14.5); WHITE BLOOD COUNT 10.5 x10^3/uL (4.0-11.0)
[2019-11-20 15:17] LABS: PROTHROMBIN TIME PATIENT 19.3 SEC (11.7-14.0)
[2019-11-20 15:24] LABS: ALBUMIN 2.7 g/dL (3.4-5.0); ALBUMIN/GLOBULIN RATIO 0.6 (1.0-1.7); CALCIUM 9.1 mg/dL (8.5-10.1); CREATININE 1.1 mg/dL (0.7-1.3); GFR 64.1; POTASSIUM 4.4 mmol/L (3.5-5.1); TOTAL BILIRUBIN 0.5 mg/dL (0.2-1.0); TOTAL PROTEIN 7.5 g/dL (6.4-8.2)
[2019-11-20 16:21] LABS: % BANDS 6 % (0-9); % LYMPHS 12 % (24-48); % MONOS 4 % (0-10); % SEGS 78 % (35-66); PLT ESTIMATE ADEQUATE (ADEQUATE)
[2019-11-20 16:22] LABS: ANISOCYTOSIS SLIGHT
== END | disposition home or self-care (01) ==
LOC: SURGPAT 13:34
PROVIDERS: ATTEND Neurological Surgery
DX: Z01.818 Encounter for other preprocedural examination (principal); M43.17 Spondylolisthesis, lumbosacral region; M47.27 Other spondylosis with radiculopathy, lumbosacral region; I48.91 Unspecified atrial fibrillation; Z79.899 Other long term (current) drug therapy
CPT/HCPCS: 36415; 80053; 85007; 85025; 85610; 85730; 87641

== ENCOUNTER 2020-07-22 10:23 | Emergency (ER) | payer MEDICARE ==
[~2020-07-22] VITALS: Ht 170.2 cm; Wt 77.2 kg
[~2020-07-22 10:23] MED LIST changes: -WARF-78 PO; +WARF5TAB2 PO
[2020-07-22 10:38] VITALS: BP 136/76
--- NOTE | 2020-07-22 11:21 | RAD ---
EXAM: AP, oblique and lateral views right knee DATE: 07/22/2020 10:36 AM INDICATION: right knee pain COMPARISON: No Prior FINDINGS: Mild medial compartment joint space narrowing. Tricompartmental osteophytes with chondrocalcinosis. Small right knee joint effusion. Decreased bone mineral density. No acute fracture. Atherosclerotic vascular calcifications are seen. IMPRESSION: 1. Within the constraints of osteopenia, no definite acute fracture. If there is persistent clinical concern for fracture, follow-up radiographs in 10-14 days or further evaluation with CT is recommended 2. Right knee joint osteoarthritis. Chondrocalcinosis suggests component of CPPD arthropathy. 3. Small right knee joint effusion. Electronically signed by: Umer Spence MD (07/22/2020 11:18 AM) [id number]
[2020-07-22] MEDS ORDERED: MENT118G TP (11:49)
--- NOTE | 2020-07-22 11:49 | PHYS DOC ---
Past Medical History Past Medical History: CAD, DVT, Kidney Stone Additional Past Medical Histor: SUBDURAL HEMATOMA, PULMONARY EMBOLISM Past Surgical History: Appendectomy, Other Additional Past Surgical Histo: multiple joint repair, mult tendon repair, cataract,venacava filter see lis Smoking Status: Former Smoker Alcohol Use: None Drug Use: None General Adult EDM: Chief Complaint: KNEE INJURY HPI: HPI: 85-year-old male past medical history significant for pulmonary embolus in 2000 on Xarelto and idiopathic pulmonary fibrosis on oxygen, presents to the ED with complaints of right knee pain for the past 2 months described as " it catching." States today he was walking in with his right foot planted twisted inwards and is now having pain with any movements of the knee. History of multiple joint replacement surgeries (Dr. Moore). No prior injury to the right knee, no blunt trauma to the knee. ROS: Allergies: Allergies: Allergies Coded Allergies Type Severity Reaction Last Updated Verified I S O L A T I O N *CONTACT* Allergy Unknown 11/27/19 Yes No Known Medication Allergies Allergy Unknown 11/27/19 Yes Physical Exam: PE: Constitutional: Well developed, well nourished, no acute distress, non-toxic appearance. [] HENT: Normocephalic, atraumatic, nose normal. [] Eyes: EOMI, conjunctiva normal, no discharge. [] Neck: Normal range of motion, no tenderness, supple, no stridor. [] Cardiovascular:Heart rate regular rhythm, no murmur [] Lungs & Thorax: Bilateral breath sounds clear to auscultation [] Abdomen: Bowel sounds normal, soft, no tenderness, no masses, no pulsatile masses. [] Skin: Warm, dry, no erythema, no rash. [] Back: No tenderness, no CVA tenderness. [] Extremities: No tenderness, no cyanosis, no clubbing, ROM intact, no edema. [] Lockman's, reverse Lockman's, varus and valgus testing with no laxity, tenderness to palpation over right lateral superior aspect of the knee joint just proximal to the patella, no bruising, flexion extension of knee intact, no hip or ankle pain Neurologic: Alert and oriented X 3, normal motor function, normal sensory function, no focal deficits noted. [] Psychologic: Affect normal, judgement normal, mood normal. [] Current Patient Data: Vital Signs: Vital Signs Date Time Temp Pulse Resp B/P (MAP) Pulse Ox O2 Delivery O2 Flow Rate FiO2 07/22/20 10:38 97.7 64 20 136/76 (96) 97 Room Air 97.7 EKG: EKG: [] Radiology/Procedures: Radiology/Procedures: IMAGING REPORT Signed PATIENT: EMMY ALBARADO ACCOUNT: [id number] : 1935 LOCATION: ER AGE: 85 SEX: M EXAM STATUS: REG ER ORD. PHYSICIAN: VINCENT FREDERICK DO REASON: right knee pain PROCEDURE: KNEE RIGHT 3V EXAM: AP, oblique and lateral views right knee DATE: 07/22/2020 10:36 AM INDICATION: right knee pain COMPARISON: No Prior FINDINGS: Mild medial compartment joint space narrowing. Tricompartmental osteophytes with chondrocalcinosis. Small right knee joint effusion. Decreased bone mineral density. No acute fracture. Atherosclerotic vascular calcifications are seen. IMPRESSION: 1. Within the constraints of osteopenia, no definite acute fracture. If there is persistent clinical concern for fracture, follow-up radiographs in 10-14 days or further evaluation with CT is recommended 2. Right knee joint osteoarthritis. Chondrocalcinosis suggests component of CPPD arthropathy. 3. Small right knee joint effusion. Electronically signed by: Umer Browne MD (07/22/2020 11:18 AM) [id number] DICTATED and SIGNED BY: UMER BROWNE MD DATE: 07/22/20 1118 Course & Med Decision Making: Course & Med Decision Making Pertinent Labs and Imaging studies reviewed. (See chart for details) Concern for right lateral superior knee pain in the setting of a joint effusion, severe osteopenia and osteoarthritis -no fracture on x-ray, suspect soft tissue injury. If pain persists recommended repeat imaging. Patient reports he has hydrocodone at home approximately 30 tablets left over from his back surgery with Dr. Vargas. Cannot take NSAIDs due to Xarelto use. Will recommend Biofreeze, rice/conservative management. Strict ED return precautions were given for severe pain. Encouraged urgent outpatient follow-up with PMD and Ortho. Life-threatening processes were considered but are low suspicion at this time, given history and physical exam. Pt was educated on all prescription medications and adverse effects. All patient's questions were answered and pt was stable at time of discharge. Differential includes fracture, dislocation, laceration, osteomyelitis, com partment syndrome, neurovascular injury or deficit, infection (abscess, cellulitis, septic arthritis), tendon or ligament injury. I spoken with the patient and her caregivers. I explained the patient's condition, diagnoses and treatment plan based on the information available to me at this time. I have answered the patient and her caregiver's questions and addressed any concerns. The patient and her caregivers have a good understanding of patient's diagnosis, condition and treatment plan as can be expected at this point. Vital signs have been stable. Patient's condition is stable and appropriate for discharge from the emergency department. Patient will pursue further outpatient evaluation with primary care physician or other designated or consulting physician as outlined in the discharge instructions. The patient and/or caregivers are agreeable to this plan of care and follow-up instructions have been explained in detail. The patient and/or caregivers have received these instructions in written form and have expressed an understanding of the discharge instructions. The patient and/or caregivers are aware that any significant change of condition or worsening of symptoms should prompt immediate return to this or the closest emergency department or call to 911. [facility] Disclaimer: [facility] Disclaimer: This electronic medical record was generated, in whole or in part, using a voice recognition dictation system. Departure Departure Impression: Primary Impression: Right knee pain Additional Impression: Osteopenia Disposition: 01 HOME, SELF-CARE Condition: STABLE Referrals: OMI HERMOSILLO D.O. (PCP) Patient Instructions: Knee Pain Additional Instructions: Jhonny Alcocer MD Primary Specialties Orthopaedic Sports Medicine Orthopaedic Surgery Address: [address] [place] [address] Scripts Menthol (BIOFREEZE) 118 Ml Gel..ml. 1 BARBARA TP QID for 7 Days, #118 ML 0 Refills Prov: VINCENT FREDERICK DO 07/22/20 Justicifation of Admission Dx: Justifications for Admission: Justification of Admission Dx: N/A VINCENT FREDERICK DO Jul 22, 2020 11:49
== END 2020-07-22 12:01 | disposition home or self-care (01) ==
LOC: ER 10:23
DX: M25.561 Pain in right knee (principal); M85.88 Other specified disorders of bone density and structure, other site; I25.10 Atherosclerotic heart disease of native coronary artery without angina pectoris; Z87.442 Personal history of urinary calculi; Z90.89 Acquired absence of other organs; Z98.890 Other specified postprocedural states; Z87.891 Personal history of nicotine dependence; Z86.718 Personal history of other venous thrombosis and embolism
CPT/HCPCS: 73562; 99283